=== PATIENT | male | born 1990 | race Caucasian/White ===

== ENCOUNTER 2021-08-03 00:12 | Emergency (ER) | payer SELFPAY ==
[~2021-08-03] VITALS: Ht 170.2 cm; Wt 74.9 kg
--- NOTE | 2021-08-03 00:14 | NUR ---
BIBA TAKEN TO BED #9
[2021-08-03 00:16] VITALS: BP 152/96
--- NOTE | 2021-08-03 00:24 | NUR ---
31 Y/O MALE BIBA, ETOH 1HR. PATIENT PRESENTS TO ED WITH MUMMBLED SPEECH AND MILD MEMORY LAPSE. EMS STATES FAMILY CALLED 911 BECAUSE THEY FOUND THE PATIENT PASSED OUT IN THE MIDDLE OF THE YARD AND UNAROUSABLE. EMS WAS ABLE TO ARROUSE THE PT WITH MUCH EFFORT AND GS-CARRIED TO THE GURNEY. PT STATES HE ONLY REMEMBERS THE AMBULANCE RIDE. PT ADMITS TO HAVING 3 BEERS. DENIES N/V/D; SKIN IS PINK/WARM/DRY; AAOX4 WITH EVEN AND STEADY GAIT; LUNGS CLEAR BL; HR EVEN AND REGULAR; PT DENIES ANY FEVER, CP, SOB, OR COUGH AT THIS TIME; PATIENT STATES PAIN OF 0/10 AT THIS TIME; VSS; PATIENT POSITIONED FOR COMFORT; HOB ELEVATED; BEDRAILS UP X2; BED DOWN. ER MD MADE AWARE OF PT STATUS. DENIES PMH, ALLERGIES, OR MEDS.
--- NOTE | 2021-08-03 00:34 | NUR ---
pt taken to ch d
--- NOTE | 2021-08-03 01:10 | NUR ---
pt is a&o x4 and ambulatory with steady gait. pt called family on cell phone for cigar packer and picker. Addendum: 08/03/21 at 0116 by [employer] pt is a&o x4 and ambulatory with steady gait. pt called family on cell phone for cigar packer and picker. vss. pt is in stable condition. pt offered a shirt, did not want it.
[2021-08-03 01:15] VITALS: BP 152/96
--- NOTE | 2021-08-03 01:15 | NUR ---
Patient discharged with v/s stable. Written and verbal after care instructions given and explained. Patient verbalized understanding. Ambulatory with steady gait. All questions addressed prior to discharge. Advised to follow up with PMD.
[2021-08-03 01:16] LABS: BASOPHILS # (AUTO) 0.1 K/uL (0.00-0.22); BASOPHILS % (AUTO) 0.8 % (0.0-2.0); EOSINOPHILS # (AUTO) 0.3 K/uL (0-0.4); EOSINOPHILS % (AUTO) 2.9 % (0.0-4.0); HEMATOCRIT 42.6 % (36-52); HEMOGLOBIN 14.6 g/dL (12.0-18.0); LYMPHOCYTES # (AUTO) 2.5 K/uL (2.0-11.5); LYMPHOCYTES % (AUTO) 27.6 % (20.5-51.1); MEAN CORPUSCULAR HEMOGLOBIN 31 pg (27-31); MEAN CORPUSCULAR HGB CONC 34 g/dL (33-37); MEAN CORPUSCULAR VOLUME 90.3 fL (80-94); MONOCYTES # (AUTO) 0.4 K/uL (0.8-1.0); MONOCYTES % (AUTO) 4.5 % (1.7-9.3); NEUTROPHILS # (AUTO) 5.8 K/uL (1.8-7.7); NEUTROPHILS % (AUTO) 64.2 % (42.2-75.2); PLATELET COUNT (AUTO) 267 K/uL (140-450); RED BLOOD CELL COUNT(AUTO) 4.72 MIL/uL (4.20-6.10); RED CELL DISTRIBUTION WIDTH 12.8 % (11.6-13.7)
[2021-08-03 01:32] LABS: ANION GAP 16.6 (8-16); CARBON DIOXIDE 23.5 mmol/L (21-32); CREATININE 0.8 mg/dL (0.6-1.3); POTASSIUM 3.1 mmol/L (3.5-5.1)
== END 2021-08-03 01:15 | disposition home or self-care (01) ==
LOC: MED 00:12
DX: F10.129 Alcohol abuse with intoxication, unspecified (principal); R41.82 Altered mental status, unspecified
CPT/HCPCS: 36415; 80048; 84484; 85025; 93005; 99284; G0482